=== PATIENT | female | born 1970 | race Asian ===

== ENCOUNTER → 2021-01-23 | Outpatient (CLI) | payer BC ==
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
== END ==
LOC: RAD FS 09:53
PROVIDERS: ATTEND Family Medicine
DX: S09.93XA Unspecified injury of face, initial encounter (principal); X58.XXXA Exposure to other specified factors, initial encounter
CPT/HCPCS: 70150